=== PATIENT | female | born 1975 | race Caucasian/White ===

== ENCOUNTER 2019-02-27 20:44 | Inpatient (IN) | payer MEDICAID ==
[~2019-02-27] VITALS: Ht 154.9 cm; Wt 77.6 kg
[2019-02-27] MEDS ORDERED: ZOLPIDEM TARTRATE 10 MG TABLET PO PRN (21:15)
[2019-02-27] MEDS ORDERED: LORazepam 2 MG TABLET PO PRN (21:15)
[2019-02-27] MEDS ORDERED: HALOPERIDOL 5 MG TABLET PO PRN (21:15)
[2019-02-27 21:36] VITALS: BP 117/76
[2019-02-27 22:56] VITALS: BP 117/71
[2019-02-28 04:56] VITALS: BP 98/60
[2019-02-28 08:34] VITALS: BP 115/71
[2019-02-28 08:47] LABS: BASOPHILS % (AUTO) 0.2 % (0.0-2.0); EOSINOPHILS % (AUTO) 1.2 % (1.0-6.0); HEMATOCRIT 33.3 % (36-46); HEMOGLOBIN 11.3 g/dL (12.0-16.0); LYMPHOCYTES # (AUTO) 0.6 K/uL (1.0-4.8); LYMPHOCYTES % (AUTO) 10.2 % (22.0-44.0); MEAN CORPUSCULAR HEMOGLOBIN 26.6 pg (26.0-34.0); MEAN CORPUSCULAR HGB CONC 33.8 G/dL (31.0-37.0); MEAN CORPUSCULAR VOLUME 79 fL (80-100); MONOCYTES # (AUTO) 0.5 K/uL (0.1-1.0); MONOCYTES % (AUTO) 8.7 % (2.0-9.0); NEUTROPHILS # (AUTO) 4.4 K/uL (1.8-7.7); NEUTROPHILS % (AUTO) 79.7 % (40.0-70.0); PLATELET COUNT (AUTO) 190 K/uL (150-450); RED BLOOD CELL COUNT(AUTO) 4.23 MIL/uL (4.00-5.20); RED CELL DISTRIBUTION WIDTH 14.6 % (11.5-14.5)
[2019-02-28 09:15] VITALS: BP 115/71
[2019-02-28 09:15] LABS: HEMOGLOBIN A1C 5.5 % (4.5-6.2)
[2019-02-28 09:44] LABS: ALANINE AMINOTRANSFERASE 13 U/L (12-78); ALBUMIN 3.5 g/dL (3.4-5.0); ALKALINE PHOSPHATASE 48 U/L (46-116); ANION GAP 10 mmol/L (8-16); ASPARTATE AMINOTRANSFERASE 12 U/L (15-37); BILIRUBIN,TOTAL 0.9 mg/dL (0.1-1.0); CALCIUM, TOTAL 8.6 mg/dL (8.8-10.5); CARBON DIOXIDE 26 mmol/L (22-29); CHLORIDE 102 mmol/L (98-107); CHOL/HDL RATIO 2.7 (3.9-5.7); CHOLESTEROL 171 mg/dL (131-200); CREATININE 0.76 mg/dL (0.60-1.30); FREE T4 (FREE THYROXINE) 1.09 ng/dL (0.76-1.46); GLOMERULAR FILTR. RATE CALC > 60 mL/min (>60); GLUCOSE,RANDOM 95 mg/dL (70-110); HCG,QUANTITATIVE < 1 mIU/mL (0-6); HDL CHOLESTEROL 64 mg/dL (40-60); LDL CHOL (CALC.) 98 mg/dL (0-130); POTASSIUM 3.7 mmol/L (3.5-5.1); SODIUM SERUM 138 mmol/L (136-145); THYROID STIMULATING HORMONE 2.85 uIU/mL (0.36-3.74); TOTAL PROTEIN, SERUM 6.3 g/dL (6.4-8.2); TRIGLYCERIDES 43 mg/dL (15-150); UREA NITROGEN, BLOOD 15 mg/dL (7-18)
[2019-02-28] MEDS: TRIHEXYPHENIDYL HCL 5 MG TABLET PO SCH ×3 (09:49→17:00)
[2019-02-28] MEDS ORDERED: GuaiFENesin/D-METHORPHAN [SUGAR-FREE] 200-20MG/10 ML SYRUP UDCUP PO PRN (13:30)
[2019-02-28] MEDS ORDERED: LOPERAMIDE HCL 2 MG CAPSULE PO PRN (13:30)
[2019-02-28] MEDS ORDERED: MAG HYDROX/AL HYDROX/SIMETH ES 30 ML SUSPENSION UDCUP PO PRN (13:30)
[2019-02-28] MEDS ORDERED: TUBERCULIN, PURIFIED PROTEIN DERIVATIVE 5 TU/0.1 ML SYRINGE ID ONE (13:30)
[2019-02-28] MEDS ORDERED: ACETAMINOPHEN 325 MG TABLET PO PRN (13:30)
[2019-02-28] MEDS ORDERED: MAGNESIUM HYDROXIDE SUSPENSION 30 ML UDCUP PO PRN (13:30)
[2019-02-28] MEDS ORDERED: HydrOXYzine PAMOATE 50 MG CAPSULE PO PRN (13:30)
[2019-02-28] MEDS ORDERED: PROMETHAZINE HCL 25 MG TABLET PO PRN (13:30)
[2019-02-28] MEDS ORDERED: OLANZapine 5 MG RAPDIS TABLET PO PRN (13:30)
[2019-02-28] MEDS: THIAMINE HCL 100 MG TABLET PO SCH (16:02)
[2019-02-28 16:24] VITALS: BP 114/66
[2019-02-28] MEDS ORDERED: HALOPERIDOL DECANOATE 50 MG/ML VIAL IM ONE (17:00)
[2019-02-28] MEDS ORDERED: HALOPERIDOL 5 MG TABLET PO PRN (17:00)
[2019-02-28] MEDS: HALOPERIDOL 10 MG TABLET PO SCH (20:45)
[2019-02-28] MEDS ORDERED: OLANZapine 5 MG RAPDIS TABLET PO SCH (21:00)
[2019-02-28] MEDS ORDERED: HALOPERIDOL 10 MG TABLET PO SCH (21:00)
[2019-03-01 01:32] VITALS: BP 105/62
[2019-03-01] MEDS: FERROUS SULFATE 325 MG EC TABLET PO SCH (06:40)
[2019-03-01] MEDS: THIAMINE HCL 100 MG TABLET PO SCH ×2 (08:42→16:53)
[2019-03-01] MEDS: MULTIVITAMINS WITH MINERALS, THERAPEUTIC TABLET PO SCH (08:42)
[2019-03-01] MEDS: FOLIC ACID 1 MG TABLET PO SCH (08:43)
[2019-03-01] MEDS: TRIHEXYPHENIDYL HCL 5 MG TABLET PO SCH ×3 (08:43→17:30)
[2019-03-01] MEDS ORDERED: FLUoxetine HCL 20 MG CAPSULE PO SCH ×2 (09:00)
[2019-03-01 09:03] VITALS: BP 94/58
[2019-03-01 10:18] VITALS: BP 103/73
[2019-03-01 16:45] VITALS: BP 108/60
[2019-03-01] MEDS: HALOPERIDOL 10 MG TABLET PO SCH (21:08)
[2019-03-02 00:21] VITALS: BP 100/60
[2019-03-02] MEDS: FERROUS SULFATE 325 MG EC TABLET PO SCH (07:19)
[2019-03-02 08:13] VITALS: BP 93/60
[2019-03-02] MEDS: MULTIVITAMINS WITH MINERALS, THERAPEUTIC TABLET PO SCH (09:03)
[2019-03-02] MEDS: FOLIC ACID 1 MG TABLET PO SCH (09:03)
[2019-03-02] MEDS: FLUoxetine HCL 20 MG CAPSULE PO SCH (09:03)
[2019-03-02] MEDS: TRIHEXYPHENIDYL HCL 5 MG TABLET PO SCH ×3 (09:03→16:55)
[2019-03-02] MEDS: THIAMINE HCL 100 MG TABLET PO SCH ×2 (09:03→16:55)
[2019-03-02] MEDS ORDERED: HALO10 PO (15:11)
[2019-03-02] MEDS ORDERED: HALO50VI4 IM (15:11)
[2019-03-02] MEDS ORDERED: FLUO-191 PO (15:11)
[2019-03-02] MEDS ORDERED: TRIH5TAB2 PO (15:11)
[2019-03-02 16:54] VITALS: BP 101/62
[2019-03-02] MEDS ORDERED: HALOPERIDOL 10 MG TABLET PO SCH (21:00)
[2019-03-03 01:00] VITALS: BP 102/62
[2019-03-03] MEDS ORDERED: FERR-89 PO (05:49)
[2019-03-03] MEDS ORDERED: FERROUS SULFATE 325 MG EC TABLET PO SCH (07:00)
[2019-03-03 09:05] VITALS: BP 101/64
[2019-03-03] MEDS ORDERED: FLUO-191 PO (09:22)
[2019-03-03] MEDS ORDERED: HALO10 PO (09:22)
[2019-03-03] MEDS ORDERED: TRIH5TAB2 PO (09:22)
[2019-03-03] MEDS: FOLIC ACID 1 MG TABLET PO SCH (09:39)
[2019-03-03] MEDS: THIAMINE HCL 100 MG TABLET PO SCH (09:39)
[2019-03-03] MEDS: FLUoxetine HCL 20 MG CAPSULE PO SCH (09:39)
[2019-03-03] MEDS: TRIHEXYPHENIDYL HCL 5 MG TABLET PO SCH (09:39)
[2019-03-03] MEDS: MULTIVITAMINS WITH MINERALS, THERAPEUTIC TABLET PO SCH (09:39)
[2019-03-14] MEDS ORDERED: HALOPERIDOL DECANOATE 50 MG/ML VIAL IM SCH (09:00)
== END 2019-03-03 10:30 | disposition home or self-care (01) | DRG 750 ==
LOC: B2S 21:06
PROVIDERS: ADMIT Psychiatry & Neurology Psychiatry; ATTEND Psychiatry & Neurology Psychiatry
DX: F25.9 Schizoaffective disorder, unspecified (principal); Z91.19 Patient's noncompliance with other medical treatment and regimen; D50.9 Iron deficiency anemia, unspecified; F32.9 Major depressive disorder, single episode, unspecified
CPT/HCPCS: 80173; 83036; 84439; 84443; J1631